=== PATIENT | male | born 1950 | race Caucasian/White ===

== ENCOUNTER → 2016-08-03 | Outpatient (CLI) | payer MEDICARE, OTHER | LOC: MW.CHUR 11:33 | PROVIDERS: ATTEND Urology | DX: R35.0 Frequency of micturition (principal) | CPT/HCPCS: 36415; 81001; 84153; 99203 ==

== ENCOUNTER 2016-09-26 08:51 | Day surgery (SDC) | payer MEDICARE, OTHER ==
[~2016-09-26 08:51] MED LIST: Lactated Ringers 1,000 ML IV SCH; ceFAZolin 1 GM in Premix Bag 1 BAG IV ONE
[2016-09-26] MEDS ORDERED: fentaNYL 250 MCG/5 ML SDV ONE (10:15)
[2016-09-26] MEDS ORDERED: Lidocaine 2% 5 ML SDV ONE (10:15)
[2016-09-26] MEDS ORDERED: Propofol 200 MG/20 ML SDV ONE (10:15)
[2016-09-26] MEDS ORDERED: Midazolam 1 MG/ML 2 ML SDV ONE (10:15)
[2016-09-26] MEDS ORDERED: Ondansetron 4 MG/2 ML SDV ONE (10:15)
[2016-09-26] MEDS ORDERED: Rocuronium 10 MG/ML 10 ML Syringe ONE (10:15)
--- NOTE | 2016-09-26 11:34 | PCM.PREANE ---
Preanesthetic Assessment - Anesthesia/Transfusion/Family Hx Anesthesia History: Prior Anesthesia Without Reaction Family History of Anesthesia Reaction: No Transfusion History: No Prior Transfusion(s) - Review of Systems General: No Symptoms Pulmonary: No Symptoms Cardiovascular: No Symptoms Gastrointestinal: No symptoms Neurological: No Symptoms Other: Reports: None - Physical Assessment NPO Status Date: 09/25/16 NPO Status Time: 20:00 O2 Sat by Pulse Oximetry: 97 Respiratory Rate: 16 Vital Signs: Last Vital Signs Temp 36.4 C 09/26/16 09:06 Pulse 54 L 09/26/16 09:06 Resp 16 09/26/16 09:06 BP 142/82 H 09/26/16 09:06 Pulse Ox 97 09/26/16 09:06 Height: 1.83 m Weight: 79.379 kg ASA Class: 2 Mental Status: Alert & Oriented x3 Airway Class: Mallampati = 2 Dentition: Reports: Broken Tooth/Teeth (multiple) Thyro-Mental Finger Breadths: 3 Mouth Opening Finger Breadths: 2 ROM/Head Extension: Limited/Partial Lungs: Clear to auscultation, Normal respiratory effort Cardiovascular: Regular Rate, Regular Rhythm - Allergies Allergies/Adverse Reactions: Allergies Allergy/AdvReac Type Severity Reaction Status Date / Time No Known Allergies Allergy Verified 09/22/16 12:25 - Blood Blood Available: No - Anesthesia Plan Pre-Op Medication Ordered: None - Acknowledgements Anesthesia Type Planned: General Anesthesia Pt an Appropriate Candidate for the Planned Anesthesia: Yes Alternatives and Risks of Anesthesia Discussed w Pt/Guardian: Yes Pt/Guardian Understands and Agrees with Anesthesia Plan: Yes PreAnesthesia Questionnaire Other HEENT History: wears glasses Cardiovascular History: Reports: None Respiratory History: Reports: Other (see below) (h/o empyema about 6 years with resulting wedge resection of right lung. denies any SOB now.) Other Respiratory History: recent pneumonia Gastrointestinal History: Reports: None Genitourinary History: Reports: Other (see below) (urinary frequancy) Musculoskeletal History: Reports: Fracture Other Musculoskeletal History: hx of fx leg Neurological History: Reports: None Psychiatric History: Reports: None Endocrine/Metabolic History: Reports: None Hematologic History: Reports: None Immunologic History: Reports: None Oncologic (Cancer) History: Reports: None Dermatologic History: Reports: None - Past Surgical History Head Surgeries/Procedures: Reports: None HEENT Surgical History: Reports: None Cardiovascular Surgical History: Reports: None Respiratory Surgical History: Reports: Other (see below) Other Respiratory Surgeries/Procedures: states during recent bout of pneumonia, his back was"cut open, ribs were spread and lung was removed from the rib it was attached to" It wa right side empyema. GI Surgical History: Reports: None Male Surgical History: Reports: None Neurological Surgical History: Reports: None Musculoskeletal Surgical History: Reports: None Oncologic Surgical History: Reports: None Dermatological Surgical History: Reports: None - SUBSTANCE USE Smoking Status *Q: Current Every Day Smoker (1 ppd) Tobacco Use Within Last Twelve Months: Cigarettes Second Hand Smoke Exposure: No Recreational Drug Use History: No - HOME MEDS Home Medications: Home Meds . [No Known Home Meds] 09/22/16 [History] - CURRENT (IN HOUSE) MEDS Current Meds: Current Medications Lactated Ringer's (Ringers, Lactated) 1,000 mls @ 100 mls/hr IV ASDIRECTED [facility] Last Admin: 09/26/16 09:20 Dose: 100 mls/hr Discontinued Medications Fentanyl (Sublimaze) Confirm Administered Dose 250 mcg .ROUTE .STK-MED ONE Stop: 09/26/16 10:16 Lactated Ringer's (Ringers, Lactated) 1,000 mls @ 100 mls/hr IV ASDIRECTED [facility] Cefazolin Sodium/Dextrose 1 gm (/ Premix) 50 mls @ 100 mls/hr IV ONETIME ONE Stop: 08/22/16 00:34 Cefazolin Sodium/Dextrose 1 gm (/ Premix) 50 mls @ 100 mls/hr IV ONETIME ONE Stop: 09/26/16 00:30 Lidocaine (Xylocaine-Mpf 2%) Confirm Administered Dose 5 ml .ROUTE .STK-MED ONE Stop: 09/26/16 10:16 Midazolam HCl (Versed 1 Mg/Ml) Confirm Administered Dose 2 mg .ROUTE .STK-MED ONE Stop: 09/26/16 10:16 Ondansetron HCl (Zofran) Confirm Administered Dose 4 mg .ROUTE .STK-MED ONE Stop: 09/26/16 10:16 Propofol (Diprivan 20 Ml) Confirm Administered Dose 200 mg .ROUTE .STK-MED ONE Stop: 09/26/16 10:16 Rocuronium [place] (Zemuron) Confirm Administered Dose 100 mg .ROUTE .[facility] ONE Stop: 09/26/16 10:16
[2016-09-26] MEDS ORDERED: Bupivacaine 0.5% 10 ML SDV ONE (12:21)
[2016-09-26] MEDS ORDERED: Succinylcholine/Normal Saline 200 MG/10 ML Syringe ONE (13:16)
[2016-09-26] MEDS ORDERED: fentaNYL 100 MCG/2 ML SDV IVPUSH PRN (14:17)
--- NOTE | 2016-09-26 15:13 | PCM.POSTAN ---
POST ANESTHESIA ASSESSMENT - MENTAL STATUS Mental Status: alert, oriented - RESPIRATORY Respiratory Status: respiratory rate WNL, airway patent, O2 saturation stable - CARDIOVASCULAR CV Status: pulse rate WNL, blood pressure stable - GASTROINTESTINAL GI Status: no symptoms - PAIN Pain Score: 0 - POST OP HYDRATION Hydration Status: adequate & stable
[2016-09-26 16:24] VITALS: BP 175/100
--- NOTE | 2016-09-26 19:54 | OR ---
SURGEON: David Livingston M.D. DATE OF PROCEDURE: 09/26/2016 PREOPERATIVE DIAGNOSES: Left inguinal hernia and left epididymal cyst. POSTOPERATIVE DIAGNOSES: Left inguinal hernia and left epididymal cyst. OPERATION: Repair of both. DESCRIPTION OF PROCEDURE: The patient was given general anesthesia and placed in supine position. The anterior abdominal wall and external genitalia were all prepped and draped in sterile drapes. A left groin incision made and carried through both Aly's fascia and the external oblique aponeurosis. The cord structures were dissected free from surrounding structures. The testicle with the epididymal cyst was delivered into the wound. The epididymal cyst was completely removed. Two additional epididymal cysts were also removed. The testicle was put back in. The hernia sac was identified and closed using a purse-string suture of 2-0 silk. The excess sac was removed and submitted. The defect in the transversalis fascia was repaired using interrupted 3-0 silk sutures. The relaxing incision was made in the conjoint tendon flexor, which was sutured to the base of the inguinal ligament. External oblique aponeurosis was then closed using interrupted 3-0 silk sutures. The subcutaneous tissues were reapproximated with 3-0 chromic. Skin was closed with gabriela. The patient tolerated the procedure well and was moved to recovery room in good condition. DESIRAE / WOODY /[id number]
== END 2016-09-26 16:20 | disposition home or self-care (01) ==
LOC: MW.SDS 08:51
PROVIDERS: ATTEND Urology
PROC: 0YQ60ZZ Repair Left Inguinal Region, Open Approach (ICD-10-PCS; principal; 2016-09-26)
DX: K40.90 Unilateral inguinal hernia, without obstruction or gangrene, not specified as recurrent (principal); N50.3 Cyst of epididymis; F17.210 Nicotine dependence, cigarettes, uncomplicated; Z87.01 Personal history of pneumonia (recurrent)
CPT/HCPCS: 49505; J0690; J2250; J2405; J3010; J7120; 00830; 88302; J2704